=== PATIENT | female | born 1990 | race Caucasian/White ===

== ENCOUNTER 2025-07-13 22:57 | Emergency (ER) | payer SELFPAY ==
[2025-07-13 23:09] VITALS: TEMP 96; O2SAT 100
--- NOTE | 2025-07-13 23:13 | ERPHSYRPT ---
- History of Present Illness Time Seen by Provider: 07/13/25 23:10 Historian: patient Exam Limitations: no limitations Patient Subjective Stated Complaint: pt states she has anxiety Triage Nursing Assessment: pt ambulated into the er; pt is axo x4; pt is restless, fidgeting with phone and demanding a phones furnace charger before being hooked up to monitor; c/o anxiety; skin PDW; no respiratory distress present; clear apical heart tone; clear lung sounds in all lobes; vitals wnl Physician History: This is a 35-year-old female patient who arrives for private vehicle and is a patient Dr. Robertson with chest pain that began earlier this morning and she described that as a substernal, central area of sharp chest pain without radiation. He had the pain intermittently during the day. She admits she also has had intermittent chest pains prior to today. She has no chest pain at this time. She also admits that maybe her anxiety. Patient has no cough. Patient has not had a fever. She takes no medications chronically and she has no known drug allergies. She has no diagnosed coronary artery disease. Timing/Duration: today Quality: sharpness Location: substernal, central Chest Pain Radiation: no radiation Severity of Pain-Max: mild Severity of Pain-Current: none Modifying Factors: Improves With: nothing Associated Symptoms: denies symptoms Prior Chest Pain/Cardiac Workup: no prior chest pain Nitro Today/Relief: no nitro taken today Aspirin Treatment Today: no aspirin today Allergies/Adverse Reactions: No Known Drug Allergies Allergy (Verified 07/13/25 22:58) Home Medications: No Reportable Medications [No Reported Medications] 07/13/25 [History] Hx Tetanus, Diphtheria Vaccination/Date Given: Yes Hx Influenza Vaccination/Date Given: No Hx Pneumococcal Vaccination/Date Given: No Travel Risk - International Travel Have you traveled outside of the country in past 3 weeks: No - Emerging Infectious Disease Are you exhibiting symptoms associated with any current EIDs: No - Review of Systems Constitutional: No Symptoms Eyes: No Symptoms Ears, Nose, & Throat: No Symptoms Respiratory: No Symptoms Cardiac: Chest Pain (None now) Abdominal/Gastrointestinal: No Symptoms Genitourinary Symptoms: No Symptoms Musculoskeletal: No Symptoms Skin: No Symptoms Neurological: No Symptoms Psychological: No Symptoms Endocrine: No Symptoms Hematologic/Lymphatic: No Symptoms Immunological/Allergic: No Symptoms All Other Systems: Reviewed and Negative - Past Medical History Pertinent Past Medical History: No - Past Surgical History Past Surgical History: No - Female History Hx Last Menstrual Period: 07/13/25 Hx Now: No - Social History Smoking Status: Never smoker Exposure to second hand smoke: No Drug Use: none - Social Determinants of Health Will the patient participate in the screening: Yes Do you worry about a steady place to live?: No Do you have any problems with any of the following?: No known problems In the past 12 months,have you had to go without utilities?: No Transportation Issues: No Has anyone in your support network made you feel unsafe?: No Have you or anyone in your house had to go w/o enough food: No - Nursing Vital Signs Nursing Vital Signs: Initial Vital Signs Temperature 96 F 07/13/25 22:58 Pulse Rate 80 07/13/25 22:58 Respiratory Rate 24 07/13/25 22:58 Blood Pressure 113/72 07/13/25 22:58 O2 Sat by Pulse Oximetry 99 07/13/25 22:58 Pain Scale Pain Intensity 0 - Physical Exam General Appearance: no apparent distress, alert, anxiety Eye Exam: PERRL/EOMI, eyes nml inspection Ears, Nose, Throat Exam: normal ENT inspection, moist mucous membranes Neck Exam: normal inspection, non-tender, supple, full range of motion Respiratory Exam: normal breath sounds, lungs clear, airway intact, No chest tenderness (None), No respiratory distress Cardiovascular Exam: regular rate/rhythm, normal heart sounds, normal peripheral pulses Gastrointestinal/Abdomen Exam: soft, normal bowel sounds, No tenderness Pelvic Exam: not done Rectal Exam: not done Back Exam: normal inspection, normal range of motion, No CVA tenderness, No vertebral tenderness Extremity Exam: normal inspection, normal range of motion, pelvis stable Neurologic Exam: alert, oriented x 3, cooperative, tire 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 No acute ischemia on today's twelve-lead EKG.) Ordered Tests: Active Orders 24 hr Category Date Time Status EKG-ER Only STAT Care 07/13/25 23:12 Active BMP Stat Lab 07/13/25 23:25 Completed TROPONIN Q4H Lab 07/13/25 23:25 Completed TROPONIN Q4H Lab 07/14/25 03:15 Ordered TROPONIN Q4H Lab 07/14/25 07:15 Ordered Lab/Rad Data: Laboratory Result Diagrams 07/13/25 23:25 Laboratory Results 07/13/25 07/13/25 Range/Units 23:25 23:25 Sodium 137 (135-145) mmol/L Potassium 3.6 (3.5-5.1) mmol/L Chloride 107 (98-107) mmol/L Carbon Dioxide 25 (22-30) mmol/L Anion Gap 8.3 (5-15) MEQ/L BUN 13 (7-17) mg/dL Creatinine 0.72 (0.52-1.04) mg/dL Estimated GFR 112.5 ML/MIN Glucose 88 (74-106) mg/dL Calcium 9.4 (8.4-10.2) mg/dL Troponin I < 0.012 (0.000-0.033) ng/mL - Progress Progress: improved, re-examined Air Movement: good Progress Note: 07/13/25 23:36 My medical decision making and the assignment of moderate complexity of this patient's medical issue today is based on review of the patient's past medical history, reviewed the patient's medication list, reviewed patient drug allergy list, history presence of physical findings on examination. The workup in this patient includes BMP, troponin level, twelve-lead EKG. Differential diagnosis includes but is not limited to anxiety, muscle skeletal pain, electrolyte abnormalities, acute myocardial infarction, arrhythmia 07/13/25 23:59 I interpreted the patient's laboratory data results. Based on laboratory data results, there are no acute, emergent medical issues 07/13/25 23:59 Patient has a low heart score. Is significantly less than 4 Blood Culture(s) Obtained: No Antibiotics given: No Counseled pt/family regarding: lab results, diagnosis, need for follow-up Medical Desision Making - Diagnostic Testing Diagnostic test were ordered, analyzed, and reviewed by me: Yes - Risk of complications Low Risk: Low risk of morbidity from additional dx testing or treatment - Departure Departure Disposition: Home Clinical Impression: Nonspecific chest pain Condition: Stable Critical Care Time: No Referrals: ZEESHAN ROBERTSON [Primary Care Provider, [facility]] - Follow up/PCP as directed Additional Instructions: May use Tylenol and ibuprofen for pain control. Call your primary care provider later today, 07/14/2025, to make arrangements for follow-up appointment for further evaluation and management.
[2025-07-13 23:45] LABS: Calcium 9.4 mg/dL (8.4-10.2); Carbon Dioxide 25.0 mmol/L (22-30); Creatinine 1 0.72 mg/dL (0.52-1.04); EST GLOMERULAR FILTRATION RATE 112.5 ML/MIN; Glucose 88.0 mg/dL (74-106); Potassium 3.6 mmol/L (3.5-5.1)
[2025-07-14 00:04] VITALS: BP 111/78; PULSE 66; RESP 23
== END 2025-07-14 00:17 | disposition home or self-care (01) ==
LOC: ED 22:57
DX: R07.9 Chest pain, unspecified (principal); F41.9 Anxiety disorder, unspecified